=== PATIENT | female | born 1990 | race Caucasian/White ===

== ENCOUNTER 2018-04-04 15:54 | Emergency (ER) | payer OTHER ==
[~2018-04-04] VITALS: Ht 160 cm; Wt 108.9 kg
[~2018-04-04 15:54] MED LIST: KEP500 PO
[2018-04-04 16:06] VITALS: BP 129/64
--- NOTE | 2018-04-04 16:13 | NUR ---
pt ambulates w/ steady gait to bed 11 at this time.
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
[2018-04-04] MEDS ORDERED: KETOROLAC 60 MG/2 ML VIAL IM ONE (17:35)
[2018-04-04] MEDS ORDERED: traMADol 50 MG TAB PO ONE (17:35)
[2018-04-04 19:12] VITALS: BP 143/57
== END 2018-04-04 19:12 | disposition home or self-care (01) ==
LOC: MED 15:54
DX: S60.222A Contusion of left hand, initial encounter (principal); J45.909 Unspecified asthma, uncomplicated; Z88.8 Allergy status to other drugs, medicaments and biological substances; V19.9XXA Pedal cyclist (driver) (passenger) injured in unspecified traffic accident, initial encounter; Y93.19 Activity, other involving water and watercraft; Y92.89 Other specified places as the place of occurrence of the external cause; Y99.8 Other external cause status
CPT/HCPCS: 73130; 81002; 81025; 96372; 99284; J1885; Q0092

== ENCOUNTER 2018-04-19 21:03 | Emergency (ER) | payer OTHER ==
[~2018-04-19] VITALS: Ht 160 cm; Wt 108.9 kg
[2018-04-19 21:06] VITALS: BP 135/111
--- NOTE | 2018-04-19 21:10 | NUR ---
PT AMBULATED TO LOBBY WITH VSS.
--- NOTE | 2018-04-19 22:15 | NUR ---
PT AMBULATED TO BED 8 AT THIS TIME
--- NOTE | 2018-04-19 22:15 | NUR ---
pt presented er with c/o wheezing, chest pain and sob with non productive cough x 1 day. pt has history of asthma. pthas had some n/v due to coughing so much. pt feels body aches and has had some fever yesterday. none at this time. pt feels pressure in her chest. no treatments or medication was done at home. pt has some wheezing bilateral. al x 4. SKIN IS PINK/WARM/DRY;EVEN AND STEADY GAIT; HR EVEN AND REGULAR; PATIENT STATES PAIN OF 8/10 AT THIS TIME; VSS; PATIENT POSITIONED FOR COMFORT; HOB ELEVATED; BEDRAILS UP X2; BED DOWN. ER MD MADE AWARE OF PT STATUS.
[2018-04-19] MEDS ORDERED: predniSONE 20 MG TAB PO ONE (22:40)
[2018-04-19] MEDS ORDERED: ALBUTEROL 0.083% 2.5 MG/3 ML NEBU INH ONE (22:40)
[2018-04-19] MEDS ORDERED: IPRATROPIUM 0.02% 0.5 MG/2.5 ML NEBU INH ONE (22:40)
--- NOTE | 2018-04-20 00:02 | NUR ---
PT SITTING UP IN BED, VITALS STABLE.
[2018-04-20 01:15] VITALS: BP 133/71
--- NOTE | 2018-04-20 01:15 | NUR ---
Patient discharged with v/s stable. Written and verbal after care instructions given and explained. Patient alert, oriented and verbalized understanding of instructions. Ambulatory with steady gait. All questions addressed prior to discharge. ID band removed. Patient advised to follow up with PMD. Rx of ZITHROMAX, ALBUTEROL, PREDNISONE was given. Patient educated on indication of medication including possible reaction and side effects. Opportunity to ask questions provided and answered.
== END 2018-04-20 01:15 | disposition home or self-care (01) ==
LOC: MED 21:03
DX: J45.909 Unspecified asthma, uncomplicated (principal); Z88.8 Allergy status to other drugs, medicaments and biological substances
CPT/HCPCS: 94640; 99283; J7512; J7613; J7644

== ENCOUNTER 2020-07-24 20:28 | Emergency (ER) | payer OTHER ==
[~2020-07-24] VITALS: Ht 160 cm; Wt 108.9 kg
[2020-07-24 21:25] VITALS: BP 131/80
--- NOTE | 2020-07-24 21:28 | NUR ---
TO LOBBY A/W BED AMBULATORY
[2020-07-25 02:09] VITALS: BP 131/80
--- NOTE | 2020-07-25 02:10 | NUR ---
Patient discharged with v/s stable. Written and verbal after care instructions given and explained. Patient alert, oriented and verbalized understanding of instructions. Ambulatory with steady gait. All questions addressed prior to discharge. ID band removed. Patient advised to follow up with PMD. Rx of FLEXERIL given. Patient educated on indication of medication including possible reaction and side effects. Opportunity to ask questions provided and answered.
== END 2020-07-25 02:10 | disposition home or self-care (01) ==
LOC: MED 20:28
DX: S43.402A Unspecified sprain of left shoulder joint, initial encounter (principal); J45.909 Unspecified asthma, uncomplicated; Z79.899 Other long term (current) drug therapy; W01.0XXA Fall on same level from slipping, tripping and stumbling without subsequent striking against object, initial encounter; Y93.89 Activity, other specified; Y92.89 Other specified places as the place of occurrence of the external cause; Y99.8 Other external cause status
CPT/HCPCS: 73030; 99283

== ENCOUNTER 2020-11-21 05:42 | Day surgery (SDC) | payer OTHER, SELFPAY ==
[~2020-11-21] VITALS: Ht 162.6 cm; Wt 108.9 kg
[2020-11-21] MEDS ORDERED: fentaNYL citrate 0.05 MG/ML VIAL ONE (07:34)
[2020-11-21] MEDS ORDERED: MIDAZOLAM 5 MG/5 ML VIAL ONE (07:34)
[2020-11-21] MEDS ORDERED: LIDOCAINE 2% 100 MG/5 ML UJET TP ONE (07:36)
[2020-11-21] MEDS ORDERED: fentaNYL citrate 0.05 MG/ML VIAL IVP ONE (08:55)
[2020-11-21] MEDS ORDERED: MIDAZOLAM 2 MG/2 ML VIAL IVP ONE (08:55)
== END 2020-11-21 09:25 | disposition home or self-care (01) ==
LOC: MDS 05:42 → MMU 06:16 → MDS 09:25
PROVIDERS: ATTEND Internal Medicine Gastroenterology
DX: K62.5 Hemorrhage of anus and rectum (principal); K63.5 Polyp of colon; F41.9 Anxiety disorder, unspecified; F32.9 Major depressive disorder, single episode, unspecified; I10 Essential (primary) hypertension; Z88.8 Allergy status to other drugs, medicaments and biological substances; Z79.899 Other long term (current) drug therapy; Z20.828 Contact with and (suspected) exposure to other viral communicable diseases
CPT/HCPCS: 45385; 88305; J2250; J3010; U0003

== ENCOUNTER 2022-04-24 21:17 | Emergency (ER) | payer OTHER ==
[~2022-04-24] VITALS: Ht 160 cm; Wt 109.8 kg
--- NOTE | 2022-04-24 21:27 | NUR ---
TO LOBBY FOLLOWING TRIAGE
--- NOTE | 2022-04-24 23:32 | NUR ---
PATIENT LEFT WITHOUT BEING SEEN BY DR. Milan. NO FURTHER CARE PROVIDED FOR PATIENT.
--- NOTE | 2022-04-24 23:32 | NUR ---
PER ER ADMITTING, PT LEFT THE FACILITY.
== END 2022-04-24 23:32 | disposition left against medical advice (07) ==
LOC: MED 21:17
DX: M54.50 Low back pain, unspecified (principal); Z53.21 Procedure and treatment not carried out due to patient leaving prior to being seen by health care provider

== ENCOUNTER 2022-05-10 21:01 | Emergency (ER) | payer OTHER ==
[~2022-05-10] VITALS: Ht 160 cm; Wt 108.9 kg
[2022-05-10 21:05] VITALS: BP 140/79
--- NOTE | 2022-05-10 23:25 | NUR ---
PATIENT CALLED TO BE ON BED , NO RESPONSE
--- NOTE | 2022-05-10 23:25 | NUR ---
PATIENT LEFT WITHOUT BEING SEEN BY DR. BRIZUELA. NO FURTHER CARE PROVIDED FOR PATIENT.
--- NOTE | 2022-05-10 23:30 | NUR ---
CALLED FOR THE SECOND TIME , NO RESPONSE
--- NOTE | 2022-05-10 23:40 | NUR ---
CALLED FOR THE THIRD TIME NO RESPONSE
== END 2022-05-10 23:21 | disposition left against medical advice (07) ==
LOC: MED 21:01
DX: M79.644 Pain in right finger(s) (principal); Z53.21 Procedure and treatment not carried out due to patient leaving prior to being seen by health care provider

== ENCOUNTER 2022-08-24 18:54 | Emergency (ER) | payer OTHER ==
[~2022-08-24] VITALS: Ht 160 cm; Wt 110.7 kg
[2022-08-24 18:59] VITALS: BP 122/81
[2022-08-24] MEDS ORDERED: IBUPROFEN 600 MG TAB PO ONE (19:35)
[2022-08-24] MEDS ORDERED: IBUP-2213 PO (20:06)
--- NOTE | 2022-08-24 20:34 | NUR ---
Patient discharged with v/s stable. Written and verbal after care instructions given and explained. Patient verbalized understanding. Ambulatory with steady gait. All questions addressed prior to discharge. Advised to follow up with PMD.
== END 2022-08-24 20:34 | disposition home or self-care (01) ==
LOC: MED 18:54
DX: S43.402A Unspecified sprain of left shoulder joint, initial encounter (principal); J45.909 Unspecified asthma, uncomplicated; Z88.1 Allergy status to other antibiotic agents; Z91.018 Allergy to other foods; Z91.010 Allergy to peanuts; Z79.899 Other long term (current) drug therapy; W01.0XXA Fall on same level from slipping, tripping and stumbling without subsequent striking against object, initial encounter; Y93.89 Activity, other specified; Y92.89 Other specified places as the place of occurrence of the external cause; Y99.8 Other external cause status
CPT/HCPCS: 73000; 73030; 73080; 99284

== ENCOUNTER 2023-02-01 11:26 | Emergency (ER) | payer OTHER ==
[~2023-02-01] VITALS: Ht 157.5 cm; Wt 109.3 kg
[~2023-02-01 11:26] MED LIST changes: +IBUP-2213 PO
[2023-02-01 11:35] VITALS: BP 134/87; PULSE 66; RESP 20; TEMP 97.4; O2SAT 99
[2023-02-01 11:43] VITALS: O2SAT 66
--- NOTE | 2023-02-01 11:55 | NUR ---
PATIENT PRESENTS TO ED WITH SOB,COUGH,CONSTIPATION,AND DYS BURNING DURING URINATION. AND HEAD PAIN PT STATES SHES HAD THIS PAIN FOR 4 DAYS. PT STATES SHES NEEDS A NEW INHALER.. DENIES N/V/D; SKIN IS PINK/WARM/DRY; AAOX4 WITH EVEN AND STEADY GAIT; LUNGS 9/10 AT THIS TIME; VSS; PATIENT POSITIONED FOR COMFORT; HOB ELEVATED; BEDRAILS UP X2; BED DOWN. ER MD MADE AWARE OF PT STATUS.
[2023-02-01] MEDS ORDERED: ALBUTEROL 0.083% 2.5 MG/3 ML NEBU INH ONE (12:00)
--- NOTE | 2023-02-01 12:09 | NUR ---
PTS URINE HAS BEEN DIPPED FOR UA AND . RESULTS RECORDED AND MD MADE AWARE.
--- NOTE | 2023-02-01 12:17 | NUR ---
Respiratory Therapist at bedside for respiratory intervention. Patient tolerated.
--- NOTE | 2023-02-01 12:20 | NUR ---
Respitory at bedside. Pt is having breathing tx.
--- NOTE | 2023-02-01 12:43 | NUR ---
X-Ray at bedside.
[2023-02-01] MEDS ORDERED: ALBU6.7H6 IH (13:21)
[2023-02-01] MEDS ORDERED: BENZ-300 PO (13:21)
[2023-02-01] MEDS ORDERED: AZIT250T4 PO (13:21)
[2023-02-01] MEDS ORDERED: PRED20TA5 PO (13:21)
[2023-02-01 13:26] VITALS: BP 134/87; PULSE 66; RESP 20; TEMP 97.4; O2SAT 66
--- NOTE | 2023-02-01 13:26 | NUR ---
Patient discharged with v/s stable. Written and verbal after care instructions given and explained. Patient alert, oriented and verbalized understanding of instructions. Ambulatory with steady gait. All questions addressed prior to discharge. ID band removed. Patient advised to follow up with PMD. Rx of PROVENTIL, ZITHROMAX, CEPACOL, DELTSONE (SENT) given. Patient educated on indication of medication including possible reaction and side effects. Opportunity to ask questions provided and answered.
--- NOTE | 2023-02-01 13:28 | NUR ---
The patient's care was reviewed and supervised by Mariza White, RN, RN.
== END 2023-02-01 13:26 | disposition home or self-care (01) ==
LOC: MED 11:26
DX: J20.9 Acute bronchitis, unspecified (principal); J45.909 Unspecified asthma, uncomplicated; I10 Essential (primary) hypertension; F32.9 Major depressive disorder, single episode, unspecified; Z88.1 Allergy status to other antibiotic agents; Z91.018 Allergy to other foods; Z91.010 Allergy to peanuts; Z79.899 Other long term (current) drug therapy; Z20.822 Contact with and (suspected) exposure to COVID-19
CPT/HCPCS: 71045; 81002; 81025; 87426; 87804; 94640; 94760; 99284; J7613; Q0092

== ENCOUNTER 2023-02-04 15:30 | Emergency (ER) | payer OTHER ==
[~2023-02-04] VITALS: Ht 160 cm; Wt 107.5 kg
[~2023-02-04 15:30] MED LIST changes: +ALBU6.7H6 IH; +AZIT250T4 PO; +BENZ-300 PO; +PRED20TA5 PO
[2023-02-04 15:38] VITALS: BP 151/86; PULSE 71; RESP 16; TEMP 97.7; O2SAT 98
--- NOTE | 2023-02-04 15:46 | NUR ---
PT AMBULATORY TO BED 11
--- NOTE | 2023-02-04 16:00 | NUR ---
32 Y/O FEMALE BIB SELF, C/O RIGHT SIDED ABD PAIN FOR 3 DAYS. PT STATES SHE HAS ALSO BEEN HAVING S/S OF NAUSEA AND DIARRHEA, WORSENS WITH EATING AND ACTIVITY. SKIN IS PINK/WARM/DRY; AAOX4 WITH EVEN AND STEADY GAIT; LUNGS CLEAR BL; HR EVEN AND REGULAR; PT DENIES ANY FEVER, CP, SOB, OR COUGH AT THIS TIME; PATIENT STATES PAIN OF 9/10 AT THIS TIME; VSS; PATIENT POSITIONED FOR COMFORT; HOB ELEVATED; BEDRAILS UP X2; BED DOWN. ER MD MADE AWARE OF PT STATUS. PMH: ASTHMA, HTN, SEIZURE, BIPOLAR, GALLSTONES, CHOLECYSTECTOMY ALLERGY: DAIRY, METROMYCIN
[2023-02-04] MEDS ORDERED: ALUMINUM HYD/MAG/SIMETHICONE 30 ML UDC PO ONE (16:15)
[2023-02-04] MEDS ORDERED: FAMOTIDINE 20 MG TAB PO ONE (16:15)
[2023-02-04] MEDS ORDERED: KETOROLAC 30 MG/ML VIAL IM ONE (16:15)
--- NOTE | 2023-02-04 16:29 | NUR ---
Blood for labwork drawn from phleb rodo. Patient tolerated.
[2023-02-04 16:38] LABS: BASOPHILS # (AUTO) 0.1 K/uL (0.00-0.22); BASOPHILS % (AUTO) 0.7 % (0.0-2.0); EOSINOPHILS # (AUTO) 0.3 K/uL (0-0.4); EOSINOPHILS % (AUTO) 2.6 % (0.0-4.0); HEMATOCRIT 39.5 % (36-48); HEMOGLOBIN 13.4 g/dL (12.0-16.0); LYMPHOCYTES # (AUTO) 2.5 K/uL (2.5-16.5); LYMPHOCYTES % (AUTO) 25.3 % (20.5-51.1); MEAN CORPUSCULAR HEMOGLOBIN 29 pg (27-31); MEAN CORPUSCULAR HGB CONC 34 g/dL (33-37); MEAN CORPUSCULAR VOLUME 86.5 fL (80-94); MONOCYTES # (AUTO) 0.8 K/uL (0.8-1.0); MONOCYTES % (AUTO) 7.9 % (1.7-9.3); NEUTROPHILS # (AUTO) 6.2 K/uL (1.8-7.7); NEUTROPHILS % (AUTO) 63.5 % (42.2-75.2); PLATELET COUNT (AUTO) 339 K/uL (140-450); RED BLOOD CELL COUNT(AUTO) 4.56 MIL/uL (4.20-5.40); RED CELL DISTRIBUTION WIDTH 13.3 % (11.6-13.7); WHITE BLOOD COUNT (AUTO) 9.7 K/uL (4.8-10.8)
[2023-02-04 16:51] LABS: ALBUMIN 3.9 g/dL (3.4-5.0); CARBON DIOXIDE 31.6 mmol/L (21-32); CREATININE 0.6 mg/dL (0.6-1.3); POTASSIUM 3.6 mmol/L (3.5-5.1); TOTAL BILIRUBIN 0.4 mg/dL (0.0-1.0)
[2023-02-04] MEDS ORDERED: KETOROLAC 60 MG/2 ML VIAL IM ONE (17:11)
[2023-02-04 17:58] LABS: APPEARANCE,URINE CLEAR (CLEAR); BILIRUBIN,URINE 1+ (NEGATIVE); BLOOD, URINE NEGATIVE (NEGATIVE); COLOR,URINE YELLOW (YELLOW); LEUKOCYTE ESTERASE ,URINE NEGATIVE (NEGATIVE); NITRITE, URINE NEGATIVE (NEGATIVE); UGLUCOSE NEGATIVE (NEGATIVE)
[2023-02-04] MEDS ORDERED: ACET-10509 PO (20:03)
[2023-02-04] MEDS ORDERED: BEN10 PO (20:03)
[2023-02-04 20:25] VITALS: BP 136/80; PULSE 60; RESP 14; TEMP 98.1; O2SAT 100
--- NOTE | 2023-02-04 20:25 | NUR ---
Patient discharged with v/s stable. Written and verbal after care instructions given and explained. Patient alert, oriented and verbalized understanding of instructions. Ambulatory with steady gait. All questions addressed prior to discharge. ID band removed. Patient advised to follow up with PMD. Rx of BENTYL AND TYLENOL given. Patient educated on indication of medication including possible reaction and side effects. Opportunity to ask questions provided and answered.
== END 2023-02-04 20:25 | disposition home or self-care (01) ==
LOC: MED 15:30
DX: R10.11 Right upper quadrant pain (principal); R19.7 Diarrhea, unspecified; R11.0 Nausea; J45.909 Unspecified asthma, uncomplicated; I10 Essential (primary) hypertension; F31.9 Bipolar disorder, unspecified; K80.20 Calculus of gallbladder without cholecystitis without obstruction; Z79.899 Other long term (current) drug therapy; Z88.8 Allergy status to other drugs, medicaments and biological substances; Z91.010 Allergy to peanuts; Z90.49 Acquired absence of other specified parts of digestive tract
CPT/HCPCS: 36415; 74176; 80053; 81003; 81025; 83690; 85025; 96372; 99285; J1885